=== PATIENT | female | born 1955 | race African-American/Black ===

== ENCOUNTER 2018-10-30 06:08 | Inpatient (IN) | payer OTHER ==
[~2018-10-30] VITALS: Ht 157.5 cm; Wt 49.0 kg
[2018-10-30] MEDS ORDERED: SODIUM CHLORIDE 0.9% 1,000 ML IV ONE (06:25)
[2018-10-30] MEDS ORDERED: ALBUTEROL (0.083%) 2.5MG/3ML NEB HHN STA (06:25)
[2018-10-30 08:27] LABS: CHLORIDE 101 mEq/L (98-107)
[2018-10-30 08:28] LABS: PROTHROMBIN TIME 10.5 sec (9.1-11.1)
[2018-10-30] MEDS ORDERED: FLUTICASONE PROPIONATE 50MCG/SPRAY BOTTLE BOTHNSTRLS STA (08:32)
[2018-10-30] MEDS ORDERED: VANCOMYCIN 1 G PREMIX 200 ML IV ONE (08:45)
[2018-10-30] MEDS ORDERED: SODIUM CHLORIDE 0.9% 1000ML BAG (SEPSIS BOLUS) IV ONE (08:45)
[2018-10-30] MEDS ORDERED: PIPERACILLIN/TAZ 3.375G PREMIX 50 ML IV ONE (08:45)
[2018-10-30 09:32] LABS: BASOPHILS % 0.1 % (0.0-2.0); EOSINOPHILS % 0.1 % (0.0-5.0); HEMATOCRIT. 33.7 % (36.0-48.0); HEMOGLOBIN. 10.6 g/dL (12.0-16.0); LYMPHOCYTES % 11.8 % (20.0-50.0); MEAN CORPUSCULAR HEMOGLOBIN 30.3 pg (28.0-32.0); MEAN PLATELET VOLUME 10.5 fl (7.4-10.4); MONOCYTES % 5.1 % (2.0-8.0); NEUTROPHILS % 82.9 % (40.0-76.0); RED BLOOD CELL COUNT 3.51 mill/uL (4.2-5.4); RED CELL DISTRIBUTION WIDTH 15.2 % (11.6-14.6)
[2018-10-30 09:34] LABS: PLATELET 12 x1000/uL (130-400)
[2018-10-30 09:50] LABS: CLARITY URINE CLOUDY (CLEAR); COLOR URINE DARK YELLOW (YELLOW); SPECIFIC GRAVITY URINE 1.027 (1.005-1.030)
[2018-10-30 09:51] LABS: KETONES URINE TRACE (NEGATIVE); LEUKOCYTE ESTERASE URINE 1+ (NEGATIVE); NITRITE URINE NEGATIVE (NEGATIVE); OCCULT BLOOD URINE 1+ (NEGATIVE); PH URINE 5.5 (4.5-8.0); PROTEIN URINE 1+ (NEGATIVE)
[2018-10-30 10:06] LABS: PLATELET ESTIMATE MARKEDLY DECREASED
[2018-10-30 12:24] VITALS: BP 79/54
[2018-10-30] MEDS ORDERED: PRED5TAB MT (13:32)
[2018-10-30] MEDS ORDERED: MULT-1146 MT (13:32)
[2018-10-30] MEDS ORDERED: LISI-186 MT (13:32)
[2018-10-30] MEDS ORDERED: ESTR42.510 VG (13:32)
[2018-10-30] MEDS ORDERED: HYDR200T80 PO (13:32)
[2018-10-30] MEDS ORDERED: ALEN70TA46 MT (13:32)
[2018-10-30] MEDS ORDERED: CALC-1210 PO (13:32)
[2018-10-30] MEDS ORDERED: SIMV20TA6 MT (13:32)
[2018-10-30 14:00] VITALS: BP 104/79
[2018-10-30] MEDS ORDERED: ACETAMINOPHEN 325MG TABLET PO PRN (15:45)
[2018-10-30] MEDS ORDERED: DEXT 5%/0.45% NACL 1000ML 1,000 ML IV SCH (15:45)
[2018-10-30] MEDS ORDERED: IPRATROPIUM/ALBUTEROL 0.5-3(2.5)MG/3ML NEB INH PRN (15:45)
[2018-10-30] MEDS ORDERED: ONDANSETRON HCL 4MG/2ML INJ IV PRN (15:45)
[2018-10-30] MEDS ORDERED: GUAIFENESIN 200MG/10ML SUGAR FREE UDC PO PRN (15:45)
[2018-10-30] MEDS ORDERED: TEMAZEPAM 15MG CAPSULE PO PRN (15:45)
[2018-10-30] MEDS ORDERED: DIPHENHYDRAMINE 50MG/ML VIAL IV PRN (15:45)
[2018-10-30] MEDS ORDERED: HYDROCODONE/ACETAMINOPHEN 5/325MG TABLET PO PRN (15:45)
[2018-10-30] MEDS ORDERED: MAGNESIUM/ALUMINUM HYDROXIDE/SIMETHICONE 30ML UDC PO PRN (15:45)
[2018-10-30] MEDS ORDERED: METHYLPREDNISOLONE SOD SUCC 40 MG/ML VIAL IV NR (16:30)
[2018-10-30] MEDS ORDERED: MVI, ADULT NO.1 10 ML, FOLIC ACID 1 MG, THIAMINE HCL 100 MG in SODIUM CHLORIDE 0.9% 1,0... IV SCH ×4 (17:00)
[2018-10-30] MEDS: CALCIUM CARBONATE 500MG TABLET CHEW PO SCH (17:55)
[2018-10-30] MEDS: HYDROXYCHLOROQUINE SULFATE 200MG TABLET PO SCH (17:55)
[2018-10-30] MEDS: LEVOFLOXACIN 500MG PREMIX 100 ML IV SCH (18:06)
[2018-10-30 20:00] VITALS: BP 130/60
[2018-10-30] MEDS: VANCOMYCIN 1 G PREMIX 200 ML IV SCH (20:35)
[2018-10-30] MEDS: BACITRACIN 15GM TUBE TOP SCH (20:52)
[2018-10-30] MEDS ORDERED: ATORVASTATIN CALCIUM 10MG TABLET PO SCH (21:00)
[2018-10-30] MEDS ORDERED: FAMOTIDINE 20MG TABLET PO SCH (21:00)
[2018-10-30 22:00] VITALS: BP 124/68
[2018-10-31] VITALS (11 sets, daily range): BP systolic 96–135; BP diastolic 54–75
[2018-10-31 07:27] LABS: CHLORIDE 108 mEq/L (98-107)
[2018-10-31 07:34] LABS: PHOSPHORUS 3.2 mg/dL (2.5-4.9)
[2018-10-31] MEDS: VANCOMYCIN 1 G PREMIX 200 ML IV SCH (08:41)
[2018-10-31] MEDS: HYDROXYCHLOROQUINE SULFATE 200MG TABLET PO SCH (08:41)
[2018-10-31] MEDS: CALCIUM CARBONATE 500MG TABLET CHEW PO SCH ×2 (08:41→17:32)
[2018-10-31] MEDS: BACITRACIN 15GM TUBE TOP SCH (08:42)
[2018-10-31] MEDS ORDERED: PREDNISONE 10MG TABLET PO SCH (09:00)
[2018-10-31] MEDS ORDERED: MAGNESIUM 4 G PREMIX 100 ML IV NR (09:00)
[2018-10-31 09:11] LABS: HEMATOCRIT. 26.4 % (36.0-48.0); HEMOGLOBIN. 8.2 g/dL (12.0-16.0); MEAN CORPUSCULAR HEMOGLOBIN 30.5 pg (28.0-32.0); MEAN CORPUSCULAR VOLUME 98.1 fL (81.0-99.0); MEAN PLATELET VOLUME 10.2 fl (7.4-10.4); RED CELL DISTRIBUTION WIDTH 15.3 % (11.6-14.6)
[2018-10-31 09:15] LABS: PLATELET 12 x1000/uL (130-400)
[2018-10-31 09:56] LABS: PLATELET ESTIMATE MARKEDLY DECREASED
[2018-10-31] MEDS ORDERED: LIDOCAINE HCL/EPINEPHRINE 1%-EPI 1:100,000 20 ML VIAL INFIL NR (13:00)
[2018-10-31] MEDS: LEVOFLOXACIN 500MG PREMIX 100 ML IV SCH (17:28)
== END 2018-10-31 21:44 | disposition short-term general hospital (02) | DRG 853 ==
LOC: ER 06:08 → 5EST 10:22 → ENRESERV 11:03
PROVIDERS: ADMIT Internal Medicine; ATTEND Internal Medicine
PROC: 05H633Z Insertion of Infusion Device into Left Subclavian Vein, Percutaneous Approach (ICD-10-PCS; principal; 2018-10-30)
PROC: B5171ZA Fluoroscopy of Left Subclavian Vein using Low Osmolar Contrast, Guidance (ICD-10-PCS; 2018-10-30)
PROC: B547ZZA Ultrasonography of Left Subclavian Vein, Guidance (ICD-10-PCS; 2018-10-30)
PROC: 0JBG0ZZ Excision of Right Lower Arm Subcutaneous Tissue and Fascia, Open Approach (ICD-10-PCS; 2018-10-31)
DX: A41.9 Sepsis, unspecified organism (principal); L89.154 Pressure ulcer of sacral region, stage 4; E43 Unspecified severe protein-calorie malnutrition; N39.0 Urinary tract infection, site not specified; Z68.1 Body mass index [BMI] 19.9 or less, adult; I69.354 Hemiplegia and hemiparesis following cerebral infarction affecting left non-dominant side; M32.9 Systemic lupus erythematosus, unspecified; D69.6 Thrombocytopenia, unspecified; E78.00 Pure hypercholesterolemia, unspecified; G89.29 Other chronic pain; M06.9 Rheumatoid arthritis, unspecified; S51.001A Unspecified open wound of right elbow, initial encounter; S41.001A Unspecified open wound of right shoulder, initial encounter; S01.21XA Laceration without foreign body of nose, initial encounter; X58.XXXA Exposure to other specified factors, initial encounter; Y93.89 Activity, other specified; Y92.89 Other specified places as the place of occurrence of the external cause; Y99.8 Other external cause status; Z74.01 Bed confinement status; Z79.899 Other long term (current) drug therapy; Z88.2 Allergy status to sulfonamides
CPT/HCPCS: 36415; 36569; 71045; 73080; 76937; 77001; 80048; 83605; 83735; 84100; 84134; 84145; 84484; 86140; 87070; 87075; 87077; 87186; 93005; 93970; 99291; C1725; C1769; J1956; J2543; J2920; J3370; J3411; J3475; J3490; J7030; J7512; J7611